=== PATIENT | female | born 1975 | race Caucasian/White ===

== ENCOUNTER 2016-04-22 09:48 | Emergency (ER) | payer MEDICAID ==
[~2016-04-22] VITALS: Wt 75.0 kg
[~2016-04-22 09:48] MED LIST: CALC-649 PO; FERR27TA PO; PREN1TAB49 PO
[2016-04-22] MEDS ORDERED: KETOROLAC 60 MG INJ IM STA (11:25)
[2016-04-22 11:58] LABS: URINE BLOOD (Dip) POC Negative (NEGATIVE)
[2016-04-22] MEDS ORDERED: NAPR-260 PO (12:33)
--- NOTE | 2016-04-22 12:33 | RADRPT ---
PROCEDURE: CR Right Knee CLINICAL INDICATION: General right knee pain TECHNIQUE: An AP, lateral, and a tunnel radiographs were submitted. COMPARISON: None FINDINGS: Osseous Structures: The osseous elements appear well mineralized and intact. Join Spaces: The joint spaces are well maintained. No joint effusion is identified. Soft Tissues: The soft tissues appear unremarkable. IMPRESSION: Unremarkable right knee. Physician Mary Date Time Electronically viewed and signed by Physician Mary on 04/22/2016 12:33 /
[2016-04-22 12:48] VITALS: BP 128/73; PULSE 73; RESP 18; TEMP 98.2
--- NOTE | 2016-04-22 13:34 | ERD ---
ER Documentation Chief Complaint Date/Time DATE: 04/22/16 TIME: 13:31 Chief Complaint R LEG PAIN X 3 WEEKS HPI This patient is a 40-year-old female with no significant medical history presenting to the emergency department for right knee pain which has been ongoing intermittently for the past 3 weeks. The patient states the pain is exacerbated by walking. The pain is localized to the lateral joint line. The pain is 8 out of 10 when walking. The patient is taken no medications at home for symptom relief. The patient denies any fevers, chills, numbness, tingling, or loss of function in the lower extremities. ROS All systems reviewed and are negative except as per history of present illness. Medications Home Meds Active Scripts Naproxen* (Naprosyn*) 500 Mg Tablet, 500 MG PO BID Y for PAIN AND/OR INFLAMMATION, #20 TAB Prov:ROSA MARIA COELLO PA-C 04/22/16 Reported Medications Calcium Carbonate (Calcium) 1 Tab Tablet, 1 TAB PO DAILY 10/09/10 Vits W-Ca,Fe,Fa(<1MG) () 1 Tab Tablet, PO DAILY 10/09/10 Ferrous Sulfate (Iron) 1 Tab Tablet, PO DAILY 10/09/10 Allergies Allergies: Coded Allergies: No Known Drug Allergies (Verified Allergy, Unknown, 04/07/14) PMhx/Soc History of Surgery: Yes (CSECTION) Anesthesia Reaction: No Hx Neurological Disorder: No Hx Respiratory Disorders: No Hx Cardiac Disorders: No Hx Psychiatric Problems: No Hx Miscellaneous Medical Probl: No Hx Alcohol Use: No Hx Substance Use: No Hx Tobacco Use: No Smoking Status: Never smoker FmHx Noncontributory for chief complaint Physical Exam Vitals Vital Signs Date Time Temp Pulse Resp B/P Pulse Ox O2 Delivery O2 Flow Rate FiO2 04/22/16 12:48 98.2 73 18 128/73 99 Room Air 04/22/16 09:50 98.0 84 18 133/78 99 Physical Exam INITIAL VITAL SIGNS: Reviewed by me. GENERAL: Alert and interactive. No acute distress. HEAD: Head is normocephalic and atraumatic. EYES: EOMI. No scleral icterus. No conjunctival injection. ENT: Moist mucosa. NECK: Supple. Full range of motion. RESPIRATORY: Normal respiratory effort. Clear breath sounds bilaterally. No wheezing, rales, or rhonchi. CV: Regular rate and rhythm. Normal S1 S2. No S3 or S4. No murmurs. ABDOMEN: Soft, non-distended, non-tender. No guarding. No rebound. No masses. EXTREMITIES: There is mild tenderness to palpation over the lateral joint line of the right knee. The patient has good passive and active range of motion of the right lower extremity. All other extremities are normal on examination SKIN: Warm and dry. NEUROLOGIC: Alert and oriented x 4. Speech is normal. Moves all extremities equally. No motor or sensory deficits noted. Results 24 hrs Laboratory Tests Test 04/22/16 12:00 Bedside Urine Blood Negative Bedside Urine Glucose (UA) Negative Bedside Urine Ketones (LAB) Negative Bedside Urine Leukocyte Esterase (L Trace Bedside Urine Nitrite (LAB) Negative Bedside Urine Protein (LAB) 2+ Bedside Urine pH (LAB) 7.0 Current Medications Medications (Trade) Dose Ordered Sig/Denilson Route PRN Reason Start Time Stop Time Status Last Admin Dose Admin Ketorolac Tromethamine (Toradol) 60 mg ONCE STAT IM 04/22/16 11:25 04/22/16 11:27 DC 04/22/16 11:59 Procedures/MDM 40-year-old female presents secondary to complaints of right knee pain ongoing for the past 3 weeks. On physical examination the patient has some mild tenderness to palpation of the lateral joint line of the right knee. Passive and active range of motion of the right lower extremity are intact. Three-view x-ray of the right knee interpreted by radiologist shows no signs of fracture, or other abnormalities. The patient is stable for outpatient management with a prescription for naproxen. The patient was told to use rice therapy at home. I doubt septic joint, knee fracture, or other emergent conditions. The patient agrees with the plan of diagnosis and she was hemodynamically stable prior to discharge. All questions and concerns were addressed. Departure Diagnosis: Primary Impression: Knee pain, chronic Condition: Stable Patient Instructions: Knee Pain, Uncertain Cause [facility]errals: [facility] Usted se kim hecho un examen mdico de control que le indica que no est en tasha condicin que requiera tratamiento urgente en el Departamento de Emergencia. Un estudio ms profundo y el tratamiento de gilman condicin pueden esperar sin ningn riesgo hasta que usted sea atendida/o en el consultorio de gilman mdico o tasha cl john. Es responsabilidad suya arreglar tasha ramiro para el seguimiento del hector. MANEJO DE CONDICIONES NO URGENTES EN EL FUTURO 1) Si usted tiene un mdico de atencin primaria: Usted debera llamar a gilman mdico de atencin primaria antes de venir al departamento de emergencia. Despus de las horas de consultorio, gilman doctor o gilman asociado/a est disponible por telfono. El mdico o enfermero de duyen en el servicio telefnico puede asesorarle por flaquito medio para atender el problema, o hector contrario se puede programar tasha ramiro. 2) Si usted no tiene un mdico de atencin primaria: Llame al mdico o clnica de referencia que aparece abajo jimi las horas de consultorio para hacer tasha ramiro para que le vean. CLINICAS: [facility] [phone] [facility] [facility] [phone] [address] [facility] [facility] [phone] [facility] [phone] [facility]. [facility] [phone] [address] [facility]. [phone] [address] Additional Instructions: No mas mejor en 2-3 [place], regresar. Mas peor en 24 horas, regresear rapidamente. Ir a doctor primario in 5-7 [place]. Usar instrucciones cuando rogers medicamento. ROSA MARIA COELLO PA-C Apr 22, 2016 13:34
== END 2016-04-22 12:48 | disposition home or self-care (01) ==
LOC: FTE 09:48
DX: M25.561 Pain in right knee (principal)
CPT/HCPCS: 73562; 81003; 96372; J1885; Z7502

== ENCOUNTER 2016-07-05 17:01 | Emergency (ER) | payer MEDICAID ==
[~2016-07-05] VITALS: Wt 95.0 kg
[~2016-07-05 17:01] MED LIST changes: +NAPR-260 PO
[2016-07-05] MEDS ORDERED: HYDROCODONE/APAP (5/325) TAB PO ONE (19:00)
[2016-07-05] MEDS ORDERED: IBUPROFEN 600 MG TAB PO ONE (19:00)
[2016-07-05] MEDS ORDERED: HYDR-906 PO (19:12)
[2016-07-05] MEDS ORDERED: IBUP-1542 PO (19:12)
--- NOTE | 2016-07-05 19:20 | ERD ---
ER Documentation Chief Complaint Date/Time DATE: 07/05/16 TIME: 19:18 Chief Complaint LEFT ANKLE PAIN S/P TWIST AND FALL, HPI This 40-year-old female presents with left ankle pain after slipping and twisting her left ankle today. She denies restricted range of motion set mildly due to pain no weakness, bleeding or redness or lacerations. ROS All systems reviewed and are negative except as per history of present illness. Medications Home Meds Active Scripts Hydrocodone/Acetaminophen ([place] 5-325 Tablet) 1 Each Tablet, 1 EACH PO QID, # 14 TAB Prov:ZAY ZEE MD 07/05/16 Ibuprofen* (Motrin*) 600 Mg Tab, 600 MG PO Q6, #20 TAB Prov:ZAY ZEE MD 07/05/16 Naproxen* (Naprosyn*) 500 Mg Tablet, 500 MG PO BID Y for PAIN AND/OR INFLAMMATION, #20 TAB Prov:ROSA MARIA COELLO PA-C 04/22/16 Reported Medications Calcium Carbonate (Calcium) 1 Tab Tablet, 1 TAB PO DAILY 10/09/10 Vits W-Ca,Fe,Fa(<1MG) () 1 Tab Tablet, PO DAILY 10/09/10 Ferrous Sulfate (Iron) 1 Tab Tablet, PO DAILY 10/09/10 Allergies Allergies: Coded Allergies: No Known Drug Allergies (Verified Allergy, Unknown, 04/07/14) PMhx/Soc History of Surgery: Yes (CSECTION) Anesthesia Reaction: No Hx Neurological Disorder: No Hx Respiratory Disorders: No Hx Cardiac Disorders: No Hx Psychiatric Problems: No Hx Miscellaneous Medical Probl: No Hx Alcohol Use: No Hx Substance Use: No Hx Tobacco Use: No Smoking Status: Never smoker Physical Exam Vitals Vital Signs Date Time Temp Pulse Resp B/P Pulse Ox O2 Delivery O2 Flow Rate FiO2 07/05/16 17:11 97.4 88 20 125/60 98 Physical Exam Const: [] Alert, [id number] per Head: Atraumatic Eyes: Normal Conjunctiva ENT: Normal External Ears, Nose and Mouth. Neck: Full range of motion..~ No meningismus. Resp: Clear to auscultation bilaterally Cardio: Regular rate and rhythm, no murmurs Abd: Soft, non tender, non distended. Normal bowel sounds Skin: No petechiae or rashes Back: No midline or flank tenderness Ext: No cyanosis, or edema. Tenderness primarily the lateral distal fibula. There is some swelling no appreciable foot metatarsal tenderness. There is no tenderness of the upper tib-fib or knee. Neur: Awake and alert Psych: Normal Mood and Affect Results 24 hrs Current Medications Medications (Trade) Dose Ordered Sig/Denilson Route PRN Reason Start Time Stop Time Status Last Admin Dose Admin Acetaminophen/ Hydrocodone Bitart ([place]ford (5/325)) 1 tab ONCE ONCE PO 07/05/16 19:00 07/05/16 19:01 DC 07/05/16 18:38 Ibuprofen (Motrin) 600 mg ONCE ONCE PO 07/05/16 19:00 07/05/16 19:01 DC 07/05/16 18:38 Procedures/MDM X-ray left ankle 3V Interpreted by me: Bones: There is a nondisplaced distal fibula fracture. Joints: No dislocation. Patient had a nondisplaced left distal fibula fracture Patient is placed in a left ankle stirrup splint. Patient is neurovascular intact after splint. Patient was also given crutches with crutch training. Patient was given Wellford and ibuprofen for pain. Patient was discharged home with orthopedic follow-up within next week. She should return for fevers, redness, new worsening symptoms. Signs and symptoms consistent with a closed nondisplaced distal fibula fracture without evidence of ischemia, deficits, neurovascular compromise. Departure Diagnosis: Primary Impression: Fracture, ankle Encounter type: initial encounter Fracture type: closed Laterality: left Qualified Code: S82.892A - Fracture, ankle, left, closed, initial encounter Condition: Stable Patient Instructions: Ankle Fracture (Distal Fibula), Closed Referrals: MAGALY JORDAN MD,IN SOWMYA Additional Instructions: Va al gilman doctor/ specialista para mas evaluacon en el proximo semana. posiblemente necesita autorizado de gilman doctor primario para specialista. Regresa para fiebre, o mas o nueva simptomas. ZAY ZEE MD Jul 05, 2016 19:20
--- NOTE | 2016-07-05 19:27 | RADRPT ---
PROCEDURE: XR Ankle. CLINICAL INDICATION: PAIN TRAUMA TECHNIQUE: AP and lateral views of the left ankle were performed. COMPARISON: None. FINDINGS: There appears to be an oblique fracture through the distal fibula, best seen on lateral view. [place] us structures appear otherwise intact. The ankle mortise is normally aligned. There is soft tissue s welling over the lateral malleolus. There is a plantar calcaneal spur. IMPRESSION: Oblique fracture of the lateral malleolus at the level of the ankle joint. RPTAT: DD .Enrico Zhou MD, MD Date Time Electronically viewed and signed by .Enrico Zhou MD, on 07/05/2016 19:27 .T/
== END 2016-07-05 20:06 | disposition home or self-care (01) ==
LOC: FTE 17:01
DX: S82.892A Other fracture of left lower leg, initial encounter for closed fracture (principal); W01.0XXA Fall on same level from slipping, tripping and stumbling without subsequent striking against object, initial encounter; Y92.9 Unspecified place or not applicable
CPT/HCPCS: 29515; 73610; Z7610

== ENCOUNTER 2018-09-27 12:56 | Emergency (ER) | payer MEDICAID ==
[~2018-09-27] VITALS: Ht 160 cm; Wt 87.2 kg
[~2018-09-27 12:56] MED LIST changes: +HYDR-4011 PO; +IBUP-1542 PO; -NAPR-260 PO; +NAPR-985 PO
[2018-09-27 13:03] VITALS: BP 180/95; PULSE 100; RESP 18; Ht 160 cm; Wt 87.2 kg
--- NOTE | 2018-09-27 13:20 | ERD ---
ER Documentation Chief Complaint Chief Complaint posterior head pain x 5 months and chest pressure x 1 month HPI Previously healthy, presents to the emergency department complaining of 5 months with chest pain, palpitations, insomnia and neck pain associated with perioral numbness and finger paresthesias. The patient states that she has been under a lot of stress and persistent worrying after she started taking care of her 93-year-old [id number]. She has had similar episodes in the past but less intense. She is not taking any medication at this time. History provided by patient. ROS All systems reviewed and are negative except as per history of present illness. Medications Home Meds Active Scripts Acetaminophen* (Tylenol*) 325 Mg Tablet, 2 TAB PO Q6 PRN for PAIN AND OR ELEVATED TEMP, #20 TAB Prov:ERLIN GREENE MD 09/27/18 Ibuprofen* (Motrin*) 400 Mg Tab, 400 MG PO Q8, #30 TAB Prov:ERLIN GREENE MD 09/27/18 Lorazepam* (Ativan*) 0.5 Mg Tablet, 0.5 MG PO QHS PRN for ANXIETY, #10 TAB Prov:ERLIN GREENE MD 09/27/18 Baclofen* (Baclofen*) 10 Mg Tablet, 10 MG PO QHS, #10 TAB Prov:ERLIN GREENE MD 09/27/18 Hydrocodone/Acetaminophen ([place] 5-325 Tablet) 1 Each Tablet, 1 EACH PO QID, #14 TAB Prov:ZAY ZEE MD 07/05/16 Ibuprofen* (Motrin*) 600 Mg Tab, 600 MG PO Q6, #20 TAB Prov:ZAY ZEE MD 07/05/16 Naproxen* (Naprosyn*) 500 Mg Tablet, 500 MG PO BID PRN for PAIN AND/OR INFLAMMATION, #20 TAB Prov:ROSA MARIA COELLO PA-C 04/22/16 Reported Medications Calcium Carbonate (Calcium) 1 Tab Tablet, 1 TAB PO DAILY 10/09/10 Vits W-Ca,Fe,Fa(<1MG) () 1 Tab Tablet, PO DAILY 10/09/10 Ferrous Sulfate (Iron) 1 Tab Tablet, PO DAILY 10/09/10 Allergies Allergies: Coded Allergies: No Known Drug Allergies (Verified Allergy, Unknown, 1/26/15) PMhx/Soc History of Surgery: No Anesthesia Reaction: No Hx Neurological Disorder: No Hx Respiratory Disorders: No Hx Cardiac Disorders: No Hx Psychiatric Problems: No Hx Miscellaneous Medical Probl: No Hx Alcohol Use: No Hx Substance Use: No Hx Tobacco Use: No Smoking Status: Never smoker FmHx Family History: diabetes; No coronary disease Physical Exam Vitals Vital Signs Date Temp Pulse Resp B/P (MAP) Pulse Ox O2 O2 Flow FiO2 Time Delivery Rate 09/27/18 98.6 100 18 180/95 99 13:03 (123) Physical Exam Const: No acute distress Head: Atraumatic Eyes: Normal Conjunctiva ENT: Normal External Ears, Nose and Mouth. Neck: Bilateral muscle spasm, full range of motion. No meningismus. Resp: Clear to auscultation bilaterally Cardio: Regular rate and rhythm, no murmurs Abd: Soft, non tender, non distended. Normal bowel sounds Skin: No petechiae or rashes Back: No midline or flank tenderness Ext: No cyanosis, or edema Neur: Awake and alert Psych: Normal Mood and Affect Results 24 hrs EKG read by me: Rate/Rhythm: Regular rate and rhythm at a rate of 112 Intervals: Normal No acute ST changes. No T wave inversion Impression: No evidence of acute ischemia or arrhythmia Procedures/MDM Vital signs stable, Physical exam unremarkable, neurovascular exam intact. Differential diagnosis include but not limited to: Depression, anxiety, migraine, thyroid disease, electrolyte imbalance. Low suspicion for acute coronary event, aortic dissection, CVA. Pertinent Data: 12 Lead ECG: Sinus rhythm, no ST changes, normal T wave, normal intervals Physical examination and clinical presentation consistent most likely with anxiety. During the ED course the patient remained stable, no new complaints. Treatment options, results and clinical impression discussed with patient who agrees with management. The patient is stable to be treated outpatient and will be discharged home with a Rx for lorazepam, some side effects of prescribed medications (headache, rash, nausea, vomiting, diarrhea, drowsiness, habituat ion, bleeding, hypertension, interactions with other medications) were reviewed. The patient was instructed to follow up with the primary care provider in the next 48h. If symptoms persist, worsen or new symptoms develop, then patient should return to the ED immediately. Instructions explained and given directly by me to the patient with acknowledgment and demonstrated understanding. Disclaimer: Inadvertent spelling and grammatical errors are likely due to EHR/dictation software use and do not reflect on the overall quality of patient care. Also, please note that the electronic time recorded on this note does not necessarily reflect the actual time of the patient encounter. Departure Diagnosis: Primary Impression: Anxiety Additional Impression: Neck muscle spasm Condition: Stable Additional Instructions: Muchas michael por [facility] para gilman servicio. Esperamos que en gilman visita a la zahra de emergencia gilman problema medico haya sido solucionado y que se sienta mucho mejor. Para estar seguros que gilman mejoria sigue en proceso, le pedimos el favor de hacer tasha ramiro de seguimiento medico con gilman doctor primario en los proximos 2-4 [place]. Lleve con usted estos documentos y las medicinas recetadas. Si lul sintomas empeoran, NO SE ESPERE, por favor regrese a zahra de emergencia INMEDIATAMENTE. En hector que usted no tenga un mdico de atencin primaria: Llame al mdico o clnica comunitaria de referencia que aparece abajo jimi las horas de consultorio para hacer tasha ramiro para que le vean. CLINICAS: [facility] [phone] [facility] [phone] [facility] [phone] [facility] [phone] [place] [phone] [facility]. [phone] MD Sep 27, 2018 13:20
[2018-09-27] MEDS ORDERED: IBUP-1561 PO (13:23)
[2018-09-27] MEDS ORDERED: ACET325T33 PO (13:23)
[2018-09-27] MEDS ORDERED: BACL10TA PO (13:23)
[2018-09-27] MEDS ORDERED: LORA-441 PO (13:23)
== END 2018-09-27 13:24 | disposition home or self-care (01) ==
LOC: E/R 12:56
DX: F41.9 Anxiety disorder, unspecified (principal); M62.838 Other muscle spasm
CPT/HCPCS: 93005; Z7502

== ENCOUNTER 2018-11-06 19:21 | Emergency (ER) | payer MEDICAID ==
[~2018-11-06] VITALS: Ht 160 cm; Wt 85.1 kg
[~2018-11-06 19:21] MED LIST changes: +ACET325T33 PO; +BACL10TA PO; +IBUP-1561 PO; +LORA-441 PO
[2018-11-06 19:51] VITALS: Ht 160 cm; Wt 85.1 kg
[2018-11-06] MEDS ORDERED: KETOROLAC 30 MG INJ IV STA (20:01)
[2018-11-06 21:13] VITALS: BP 159/102; PULSE 84; RESP 20
== END 2018-11-06 21:13 | disposition home or self-care (01) ==
LOC: E/R 19:21
DX: R07.89 Other chest pain (principal)
CPT/HCPCS: 36415; 71045; 80048; 81025; 84484; 85025; 93005; 96374; J1885; Z7502